=== PATIENT | female | born 1965 | race Caucasian/White ===

== ENCOUNTER 2016-11-05 10:19 | Day surgery (SDC) | payer BC ==
[~2016-11-05] VITALS: Ht 160 cm; Wt 68.0 kg
--- NOTE | ~2016-11-05 | OP ---
Record Of Operation [facility] [address] [place]. [address] NAME: DAYAN WIGGINS : 67 STATUS : [facility]#: [id number] AGE: 51 ADM/REG DATE : 11/05/16 MR#: [id number] REPORT SERV DATE: 11/05/16 DICTATED BY: VARSHA PRYOR DATE: 11/05/16 REPORT STATUS : Draft TRANSCRIBED BY: ARPITA DATE: 11/05/16 DATE OF PROCEDURE: 11/05/2016 PREOPERATIVE DIAGNOSES: 1. Right hallux rigidus. 2. Right first metatarsophalangeal joint synovitis. POSTOPERATIVE DIAGNOSES: 1. Right hallux rigidus. 2. Right first metatarsophalangeal joint synovitis. 3. Right first metatarsal head arthritis. PROCEDURE: Right first metatarsophalangeal joint cheilectomy with synthetic cartilage implant insertion. ANESTHESIA: General local anesthetic. ESTIMATED BLOOD LOSS: Minimal. COMPLICATIONS: None. INJECTABLES: Approximately 30 mL of a 1:1 mixture of 1% lidocaine plain and 0.5% Marcaine plain. MATERIALS: Include Cartiva synthetic cartilage implant, 3-0 Vicryl, 4-0 Monocryl, Steri- Strips, well-padded sterile dressing. PROCEDURE IN DETAIL: Under mild sedation, the patient was brought to the operating room and placed on operating room table in supine position. Following general anesthesia, local anesthesia obtained about the patient's right foot. Right foot and ankle were scrubbed, prepped, and draped in usual aseptic manner. Attention directed to procedure. Procedure #1: Right first metatarsophalangeal joint cheilectomy with synthetic cartilage implant insertion. Attention directed to the dorsal aspect of the patient's right first metatarsophalangeal joint where an approximate 3 to 4 cm incision was made medial and parallel to the extensor tendon involving the contour of the first metatarsophalangeal joint. The incision was deepened to subcutaneous tissue with care being taken to identify and retract all vital neurovascular structures. All bleeders were cauterized and ligated as necessary. Linear capsular incision was made medial and parallel to the extensor tendon. Capsular tissues reflected medially and laterally exposing the first metatarsophalangeal joint. At this time, synovitis was present dorsally and was resected with a rongeur. Bossing and spurring were noted at the metatarsal head and resected with a rongeur and smoothed with a Nguyen rasp. At this time, visualization of the first metatarsophalangeal joint showed approximately 20% to 25% of cartilaginous loss to the metatarsal head in a linear fashion over the central lateral aspect of the metatarsal head. A flap of cartilage was noted to be nonviable and was resected. At this time, it was deemed necessary to Record Of Operation [address] [place]. [address] NAME: DAYAN WIGGINS : 67 STATUS : [facility] PAT#: [id number] AGE: 51 ADM/REG DATE : 11/05/16 MR#: [id number] REPORT SERV DATE: 11/05/16 DICTATED BY: VARSHA PRYOR DATE: 11/05/16 REPORT STATUS : Draft TRANSCRIBED BY: ARPITA DATE: 11/05/16 perform the synthetic cartilage implant. At this time, the cannulated guide was placed overlying the central portion of the metatarsal head. The guidewire was inserted. The guide was removed and the overdrilling ensued. This was drilled in order to leave the Cartiva implant approximately 2 mm proud. At this time, all bony debris was irrigated and removed, the guidewire was removed, and the Cartiva implant was inserted. Approximately 2 mm was left proud and excellent range of motion was present. After copious irrigation, attention was directed to closure of the capsule, deep fascia tissues reapproximated using 3 0 Vicryl, subcutaneous tissue reapproximated with 4-0 Vicryl, and skin reapproximated using 4-0 Monocryl in a subcuticular suture technique. Steri-Strips applied. A well-padded sterile dressing and a well-padded CAM walker were placed about the patient's right foot and ankle. The patient tolerated the procedure and anesthesia well and was transferred to recovery room. Vital signs were stable. Vascular status intact to all toes. Following a period of postoperative monitoring, the patient will be discharged to home with the following written and oral postoperative instructions. 1. Keep dressings clean, dry, and intact. 2. Partial weightbearing as instructed, ice and elevate as directed, take medications as prescribed, and instructed and will follow up with Dr. Pryor in 7 to 14 days. RAMONA/NARENDRAL Bibi Pryor D.P.M. / [id number] CC: Eugenia Zaldivar M.D.
[~2016-11-05 10:19] MED LIST: ALEVE220 MG PO; ESTRACE0.5 MG PO; IBU800 PO; PROZAC PO; TRAZ50 PO
== END 2016-11-05 17:29 | disposition home or self-care (01) ==
LOC: SDC 10:19
PROVIDERS: Podiatrist Foot & Ankle Surgery
PROC: 0SRM0JZ Replacement of Right Metatarsal-Phalangeal Joint with Synthetic Substitute, Open Approach (ICD-10-PCS; principal; 2016-11-05 11:45)
DX: M20.21 Hallux rigidus, right foot (principal); M65.871 Other synovitis and tenosynovitis, right ankle and foot; M19.071 Primary osteoarthritis, right ankle and foot; F41.9 Anxiety disorder, unspecified; F32.9 Major depressive disorder, single episode, unspecified; K58.9 Irritable bowel syndrome, unspecified; Z87.442 Personal history of urinary calculi; Z88.8 Allergy status to other drugs, medicaments and biological substances; Z88.5 Allergy status to narcotic agent; Z90.49 Acquired absence of other specified parts of digestive tract; Z90.710 Acquired absence of both cervix and uterus; Z98.51 Tubal ligation status; Z79.82 Long term (current) use of aspirin; Z79.818 Long term (current) use of other agents affecting estrogen receptors and estrogen levels; Z79.1 Long term (current) use of non-steroidal anti-inflammatories (NSAID); Z79.899 Other long term (current) drug therapy; Z98.890 Other specified postprocedural states
CPT/HCPCS: A9270-GY; J0690; J2250; J2270; J3010